=== PATIENT | female | born 2000 | race Caucasian/White ===

== ENCOUNTER 2019-08-10 14:05 | Observation (INO) | payer MEDICAID ==
[2019-08-10] MEDS ORDERED: IV RINGERS,LACTATED 1000ML 1,000 ML IV PRN (14:30)
[2019-08-10 15:15] LABS: BILIRUBIN,URINE NEGATIVE (NEG); CLARITY,URINE CLEAR; COLOR,URINE YELLOW; NITRITE,URINE NEGATIVE (NEG); PROTEIN,URINE NEGATIVE (NEG-TRACE)
[2019-08-10 15:29] LABS: BACTERIA,URINE 0 /HPF (0-FEW); RBC,URINE 0 /HPF (0-2); SQUAMOUS EPITHELIAL CELL,UR MANY /LPF; WBC,URINE 0 /HPF (0-4)
[2019-08-10 15:57] LABS: AMNIO PT NEGATIVE
[2019-08-10] MEDS ORDERED: PREN-54 PO (17:35)
[2019-08-10] MEDS ORDERED: ESCITALOPRAM OXA5 M1 PO (17:35)
[2019-08-10] MEDS ORDERED: ONDA8TAB15 PO (17:35)
== END 2019-08-10 17:30 | disposition home or self-care (01) ==
LOC: 3 SO LND 14:05
PROVIDERS: ADMIT Obstetrics & Gynecology; ATTEND Obstetrics & Gynecology
DX: O26.893 Other specified pregnancy related conditions, third trimester (principal); O60.14X0 Preterm labor third trimester with preterm delivery third trimester, not applicable or unspecified; Z3A.39 39 weeks gestation of pregnancy
CPT/HCPCS: 36415; 81001; 84112; G0378; G0379

== ENCOUNTER → 2020-01-26 | Outpatient (CLI) | payer MEDICAID ==
[2019-08-15 18:45] VITALS: BP 115/75
[~2020-01-26] MED LIST: CITA20TA9 PO; DOCU-109 PO; ESCITALOPRAM OXA5 M1 PO; IBUP-1027 PO; ONDA8TAB15 PO; OXYC1TAB15 PO; PREN-54 PO
[2020-01-26 11:27] LABS: BASO # 0.1 x10^3/uL (0.0-0.2); BASO % 1 % (0-3); EOS # 0.1 x10^3/uL (0.0-0.7); EOS % 1 % (0-3); HEMATOCRIT 36.7 % (36.0-47.0); HEMOGLOBIN 11.9 g/dL (12.0-15.5); LYMPH # 2.2 x10^3/uL (1.0-4.8); LYMPH % 22 % (24-48); MEAN CORPUSCULAR HEMOGLOBIN 22 pg (25-35); MEAN CORPUSCULAR HGB CONC 33 g/dL (31-37); MEAN CORPUSCULAR VOLUME 68 fL (79-100); MONO # 0.7 x10^3/uL (0.0-1.1); MONO % 7 % (0-9); NEUT % 69 % (31-73); PLATELET COUNT 279 x10^3/uL (140-400); RED BLOOD COUNT 5.37 x10^6/uL (3.50-5.40); RED CELL DISTRIBUTION WIDTH 15.9 % (11.5-14.5); WHITE BLOOD COUNT 10.1 x10^3/uL (4.0-11.0)
[2020-01-26 12:13] LABS: PLT ESTIMATE ADEQUATE (ADEQUATE)
[2020-01-26 12:15] LABS: ANISOCYTOSIS SLIGHT; HYPOCHROMIA PRESENT; MICROCYTOSIS MARKED; POLYCHROMASIA SLIGHT
[2020-01-26 12:16] LABS: OVALOCYTES MOD; TARGET CELLS FEW; TEAR DROP CELLS FEW
== END | disposition home or self-care (01) ==
LOC: LAB 10:48
PROVIDERS: ATTEND Obstetrics & Gynecology
DX: Z32.01 Encounter for pregnancy test, result positive (principal)
CPT/HCPCS: 36415; 85025; 86592; 86703; 86762; 86850; 86900; 86901; 87340

== ENCOUNTER 2020-06-19 08:45 | Emergency (ER) | payer MEDICAID ==
[~2020-06-19] VITALS: Ht 162.6 cm; Wt 95.0 kg
[2020-06-19] MEDS ORDERED: IV NORMAL SALINE 1000ML BAG 1,000 ML IV SCH (08:53)
--- NOTE | 2020-06-19 08:56 | PHYS DOC ---
Past Medical History Past Medical History , 27 WEEKS Drug Use: Marijuana General Adult EDM: Chief Complaint: Epigastric pain HPI: HPI: Patient is a 19 year old female who presents with 2-day history of epigastric pain radiating to her back. Patient is 27 weeks patient describes nausea vomiting and intermittent pain that is severe in intensity currently patient feels very anxious and has shortness of breath associated with the pain. Pain is worse with eating. Patient did smoke some marijuana today to try to alleviate the symptoms without much improvement. Patient denies any vaginal bleeding. Review of Systems: Review of Systems: Constitutional: Denies fever or chills. [] Eyes: Denies change in visual acuity. [] HENT: Denies nasal congestion or sore throat. [] Respiratory: Denies cough has shortness of breath associated with pain Cardiovascular: Denies chest pain or edema. [] GI: Complains of abdominal pain nausea and vomiting but no diarrhea : Denies dysuria. [] Denies vaginal bleeding Musculoskeletal: Complains of back pain Integument: Denies rash. [] Neurologic: Denies headache, focal weakness or sensory changes. [] Endocrine: Denies polyuria or polydipsia. [] Lymphatic: Denies swollen glands. [] Psychiatric: Denies depression or anxiety. [] Heart Score: HEART Score for Chest Pain: HEART Score for Chest Pain Response (Comments) Value History Slighlty/Non-Suspicious 0 ECG Nonspecific Repolarizatio 1 Age < 45 0 Risk Factors No Risk Factors 0 Total 1 Risk Factors: Risk Factors: DM, Current or recent (<one month) smoker, HTN, HLP, family history of CAD, obesity. Risk Scores: Score 0 - 3: 2.5% MACE over next 6 weeks - Discharge Home Score 4 - 6: 20.3% MACE over next 6 weeks - Admit for Clinical Observation Score 7 - 10: 72.7% MACE over next 6 weeks - Early Invasive Strategies Allergies: Allergies: Allergies Coded Allergies Type Severity Reaction Last Updated Verified No Known Drug Allergies 08/10/19 No Physical Exam: PE: Constitutional: Well developed, well nourished, moderate distress, non-toxic appearance. [] HENT: Normocephalic, atraumatic, bilateral external ears normal, no trismus nose normal. [] Eyes: PERRLA, EOMI, conjunctiva normal, no discharge. [] Neck: Normal range of motion, no tenderness, supple, no stridor. [] Cardiovascular:Heart rate regular rhythm, cap refill brisk peripheral pulses intact. Lungs & Thorax: Bilateral breath sounds clear, no respiratory distress Abdomen: Gravid uterus with tenderness to palpate in the right upper quadrant epigastric area, no guarding or rebound no pulsatile masses Skin: Warm, dry, no erythema, no rash. [] Back: No tenderness, no CVA tenderness. [] Extremities: No tenderness, no cyanosis, no clubbing, ROM intact, no edema. [] Neurologic: Alert and oriented X 3, normal motor function, normal sensory function, no focal deficits noted. [] Psychologic: Extremely anxious and tearful Current Patient Data: Labs: Laboratory Tests Test 06/19/20 09:03 White Blood Count 14.5 x10^3/uL Red Blood Count 4.99 x10^6/uL Hemoglobin 10.9 g/dL Hematocrit 34.7 % Mean Corpuscular Volume 70 fL Mean Corpuscular Hemoglobin 22 pg Mean Corpuscular Hemoglobin Concent 32 g/dL Red Cell Distribution Width 15.3 % Platelet Count 277 x10^3/uL Neutrophils (%) (Auto) 85 % Lymphocytes (%) (Auto) 11 % Monocytes (%) (Auto) 4 % Eosinophils (%) (Auto) 0 % Basophils (%) (Auto) 0 % Neutrophils # (Auto) 12.2 x10^3/uL Lymphocytes # (Auto) 1.6 x10^3/uL Monocytes # (Auto) 0.6 x10^3/uL Eosinophils # (Auto) 0.0 x10^3/uL Basophils # (Auto) 0.0 x10^3/uL Platelet Estimate Adequate Hypochromasia Present Microcytosis Present Sodium Level 137 mmol/L Potassium Level 3.4 mmol/L Chloride Level 102 mmol/L Carbon Dioxide Level 21 mmol/L Anion Gap 14 Blood Urea Nitrogen 15 mg/dL Creatinine 0.7 mg/dL Estimated GFR (Cockcroft-Gault) 106.7 BUN/Creatinine Ratio 21 Glucose Level 115 mg/dL Calcium Level 8.6 mg/dL Total Bilirubin 0.3 mg/dL Aspartate Amino Transf (AST/SGOT) 11 U/L Alanine Aminotransferase (ALT/SGPT) 13 U/L Alkaline Phosphatase 89 U/L Total Protein 7.3 g/dL Albumin 3.2 g/dL Albumin/Globulin Ratio 0.8 Lipase 58 U/L Current Medications Medications (Trade) Dose Ordered Sig/Venu Route PRN Reason Start Time Stop Time Status Last Admin Dose Admin Sodium Chloride 1,000 ml @ 1,000 mls/hr Q1H IV 06/19/20 08:53 06/19/20 09:47 DC Ondansetron HCl (Zofran) 4 mg 1X ONCE IVP 06/19/20 09:00 06/19/20 09:01 DC Vital Signs: Vital Signs Date Time Temp Pulse Resp B/P (MAP) Pulse Ox O2 Delivery O2 Flow Rate FiO2 06/19/20 09:00 97.8 97 26 132/97 (109) 98 Room Air 97.8 Vital Signs Date Time Temp Pulse Resp B/P (MAP) Pulse Ox O2 Delivery O2 Flow Rate FiO2 06/19/20 09:00 97.8 97 26 132/97 (109) 98 Room Air 97.8 EKG: EKG: [] EKG interpreted by me normal sinus rhythm with a rate of 99 normal axis normal intervals nonspecific ST changes Radiology/Procedures: Radiology/Procedures: [] Course & Med Decision Making: Course & Med Decision Making Pertinent Labs and Imaging studies reviewed. (See chart for details) [] Upon initial assessment is determined that the patient is having epigastric pain and is over 20 weeks I ordered initial work-up for gallbladder and think the patient is best served up in the labor and delivery unit to rule out active labor.. Dragon Disclaimer: Dragon Disclaimer: This electronic medical record was generated, in whole or in part, using a voice recognition dictation system. Departure Departure Impression: Primary Impression: Epigastric pain Additional Impression: Disposition: 05 TRANSFER OTHER (L&d) Condition: STABLE Referrals: NO PCP (PCP) Justicifation of Admission Dx: Justifications for Admission: Justification of Admission Dx: N/A ELEANOR PUENTES MD Jun 19, 2020 08:56
[2020-06-19 09:00] VITALS: BP 132/97
[2020-06-19] MEDS ORDERED: ONDANSETRON PF 4 MG/2 ML VIAL. IVP ONE (09:00)
[2020-06-19 09:15] LABS: BASO % 0 % (0-3); EOS % 0 % (0-3); HEMATOCRIT 34.7 % (36.0-47.0); HEMOGLOBIN 10.9 g/dL (12.0-15.5); LYMPH # 1.6 x10^3/uL (1.0-4.8); LYMPH % 11 % (24-48); MEAN CORPUSCULAR HEMOGLOBIN 22 pg (25-35); MEAN CORPUSCULAR HGB CONC 32 g/dL (31-37); MEAN CORPUSCULAR VOLUME 70 fL (79-100); MONO # 0.6 x10^3/uL (0.0-1.1); MONO % 4 % (0-9); NEUT # 12.2 x10^3/uL (1.8-7.7); NEUT % 85 % (31-73); PLATELET COUNT 277 x10^3/uL (140-400); RED BLOOD COUNT 4.99 x10^6/uL (3.50-5.40); RED CELL DISTRIBUTION WIDTH 15.3 % (11.5-14.5); WHITE BLOOD COUNT 14.5 x10^3/uL (4.0-11.0)
[2020-06-19 09:23] LABS: CALCIUM 8.6 mg/dL (8.5-10.1); CREATININE 0.7 mg/dL (0.6-1.0); GFR 106.7; POTASSIUM 3.4 mmol/L (3.5-5.1)
[2020-06-19 09:29] LABS: ALBUMIN 3.2 g/dL (3.4-5.0); ALBUMIN/GLOBULIN RATIO 0.8 (1.0-1.7); TOTAL BILIRUBIN 0.3 mg/dL (0.2-1.0); TOTAL PROTEIN 7.3 g/dL (6.4-8.2)
[2020-06-19 10:39] LABS: HYPOCHROMIA PRESENT; MICROCYTOSIS PRESENT; PLT ESTIMATE ADEQUATE (ADEQUATE)
--- NOTE | 2020-06-19 11:29 | RAD ---
Right upper quadrant ultrasound dated 06/19/2020. No comparison available. Clinical data indication: Right upper quadrant pain. FINDINGS: Liver is homogeneous in echogenicity. No focal hepatic mass. Intrahepatic and extrahepatic biliary tree normal in caliber. The common bile duct measures 5 mm. Gallbladder normal in size and echogenicity. No gallbladder wall thickening or pericholecystic fluid. No gallstones are seen. Right kidney measures 10.3 cm in length. No hydronephrosis. Left kidney was not imaged. Limited visualized portions of pancreas aorta and IVC unremarkable. No significant ascites. IMPRESSION: No acute sonographic abnormality. Electronically signed by: Bobo Thompson MD (06/19/2020 11:25 AM) [id number]
== END 2020-06-19 09:15 | disposition home or self-care (01) ==
LOC: ER 08:45
DX: O21.9 Vomiting of pregnancy, unspecified (principal); R10.13 Epigastric pain; R06.02 Shortness of breath; F12.90 Cannabis use, unspecified, uncomplicated; Z3A.27 27 weeks gestation of pregnancy
CPT/HCPCS: 36415; 76705; 80053; 83690; 85025; 99284

== ENCOUNTER 2020-06-19 09:11 | Observation (INO) | payer MEDICAID ==
[2019-08-15 18:45] VITALS: BP 115/75
[2020-06-19] MEDS ORDERED: IV RINGERS,LACTATED 1000ML 1,000 ML IV SCH (09:40)
[2020-06-19] MEDS ORDERED: MORPHINE SULFATE 10 MG/ML VIAL. ONE (09:42)
[2020-06-19] MEDS ORDERED: ONDANSETRON PF 4 MG/2 ML VIAL. IVP PRN (09:45)
[2020-06-19] MEDS ORDERED: MORPHINE SULFATE 10 MG/ML VIAL. IV ONE (09:45)
[2020-06-19] MEDS ORDERED: PANTOPRAZOLE IV PUSH 40 MG VIAL. IVP ONE (09:45)
[2020-06-19 11:22] LABS: ALBUMIN 3.2 g/dL (3.4-5.0); ALBUMIN/GLOBULIN RATIO 0.8 (1.0-1.7); CALCIUM 8.4 mg/dL (8.5-10.1); CREATININE 0.7 mg/dL (0.6-1.0); GFR 106.7; POTASSIUM 3.5 mmol/L (3.5-5.1); TOTAL BILIRUBIN 0.3 mg/dL (0.2-1.0); TOTAL PROTEIN 7.3 g/dL (6.4-8.2)
== END 2020-06-19 14:21 | disposition home or self-care (01) ==
LOC: 3 SO LND 09:11
PROVIDERS: ADMIT Obstetrics & Gynecology; ATTEND Obstetrics & Gynecology
DX: O26.892 Other specified pregnancy related conditions, second trimester (principal); O99.322 Drug use complicating pregnancy, second trimester; R10.13 Epigastric pain; F12.10 Cannabis abuse, uncomplicated; R11.2 Nausea with vomiting, unspecified; Z3A.27 27 weeks gestation of pregnancy
CPT/HCPCS: 36415; 80053; 82150; 83690; 96361; 96374; 96375; 99284; C9113; G0378; J2270; J2405; J7120; G0379

== ENCOUNTER 2020-07-07 19:13 | Observation (INO) | payer MEDICAID ==
[2019-08-15 18:45] VITALS: BP 115/75
[2020-07-07 19:40] LABS: BILIRUBIN,URINE NEGATIVE (NEG); CLARITY,URINE TURBID; COLOR,URINE YELLOW; NITRITE,URINE NEGATIVE (NEG); PH,URINE 7.5 (<5.0-8.0); PROTEIN,URINE NEGATIVE (NEG-TRACE)
[2020-07-07] MEDS ORDERED: ONDANSETRON PF 4 MG/2 ML VIAL. IVP PRN ×2 (19:45→22:30)
[2020-07-07 19:48] LABS: BARBITURATES NEG (NEG); BENZODIAZEPINES NEG (NEG); CANNABINOIDS POS (NEG); COCAINE NEG (NEG); METHADONE NEG (NEG); OPIATES NEG (NEG); PHENCYCLIDINE NEG (NEG)
[2020-07-07 19:49] LABS: AMPHETAMINE/METHAMPHETAMINE NEG (NEG)
[2020-07-07] MEDS: IV RINGERS,LACTATED 1000ML 1,000 ML IV SCH ×2 (19:51→20:42)
[2020-07-07 19:59] LABS: BASO # 0.1 x10^3/uL (0.0-0.2); BASO % 1 % (0-3); EOS # 0.1 x10^3/uL (0.0-0.7); EOS % 1 % (0-3); HEMATOCRIT 31.7 % (36.0-47.0); HEMOGLOBIN 10.3 g/dL (12.0-15.5); LYMPH # 2.2 x10^3/uL (1.0-4.8); LYMPH % 17 % (24-48); MEAN CORPUSCULAR HEMOGLOBIN 23 pg (25-35); MEAN CORPUSCULAR HGB CONC 33 g/dL (31-37); MEAN CORPUSCULAR VOLUME 70 fL (79-100); MONO # 0.6 x10^3/uL (0.0-1.1); MONO % 5 % (0-9); NEUT # 10.5 x10^3/uL (1.8-7.7); NEUT % 78 % (31-73); PLATELET COUNT 238 x10^3/uL (140-400); RED BLOOD COUNT 4.54 x10^6/uL (3.50-5.40); RED CELL DISTRIBUTION WIDTH 15.4 % (11.5-14.5); WHITE BLOOD COUNT 13.5 x10^3/uL (4.0-11.0)
[2020-07-07 20:00] LABS: SQUAMOUS EPITHELIAL CELL,UR FEW /LPF
[2020-07-07 20:02] LABS: AMORPHOUS SEDIMENT,UR PRESENT /HPF; BACTERIA,URINE FEW /HPF (0-FEW); RBC,URINE 0 /HPF (0-2); WBC,URINE OCC /HPF (0-4)
[2020-07-07] MEDS ORDERED: MORPHINE SULFATE 2 MG/ML VIAL. IV ONE (20:15)
[2020-07-07] MEDS ORDERED: BUTORPHANOL 2 MG/ML VIAL. ONE (20:33)
[2020-07-07] MEDS ORDERED: BUTORPHANOL 2 MG/ML VIAL. IV PRN (20:45)
[2020-07-07 20:51] LABS: ANISOCYTOSIS SLIGHT; HYPOCHROMIA MOD; MICROCYTOSIS MOD; OVALOCYTES PRESENT; PLT ESTIMATE ADEQUATE (ADEQUATE); POIKILOCYTOSIS PRESENT
[2020-07-07 20:52] LABS: TEAR DROP CELLS OCC
[2020-07-07] MEDS ORDERED: ACETAMINOPHEN 500 MG TABLET PO PRN (22:30)
[2020-07-07] MEDS ORDERED: diphenhydrAMINE HCL 25 MG CAPSULE PO ONE (23:00)
== END 2020-07-07 22:45 | disposition home or self-care (01) ==
LOC: 3 SO LND 19:13
PROVIDERS: ADMIT Obstetrics & Gynecology; ATTEND Obstetrics & Gynecology
DX: O21.2 Late vomiting of pregnancy (principal); O99.89 Other specified diseases and conditions complicating pregnancy, childbirth and the puerperium; M54.9 Dorsalgia, unspecified; Z3A.29 29 weeks gestation of pregnancy; Z79.899 Other long term (current) drug therapy
CPT/HCPCS: 36415; 80307; 81001; 85025; 87086; 96361; 96374; 96375; G0378; G0379; J0595; J2405; J7120

== ENCOUNTER 2020-07-14 12:19 | Observation (INO) | payer MEDICAID ==
[2019-08-15 18:45] VITALS: BP 115/75
[2020-07-14] MEDS ORDERED: ACETAMINOPHEN 325 MG TABLET. PO PRN (12:30)
[2020-07-14] MEDS ORDERED: ONDANSETRON PF 4 MG/2 ML VIAL. IVP PRN (12:30)
[2020-07-14 12:55] LABS: BILIRUBIN,URINE NEGATIVE (NEG); CLARITY,URINE CLEAR; COLOR,URINE AMBER; NITRITE,URINE NEGATIVE (NEG); PROTEIN,URINE NEGATIVE (NEG-TRACE)
[2020-07-14 13:04] LABS: SQUAMOUS EPITHELIAL CELL,UR MOD /LPF
[2020-07-14 13:05] LABS: AMORPHOUS SEDIMENT,UR PRESENT /HPF; BACTERIA,URINE 0 /HPF (0-FEW); RBC,URINE 0 /HPF (0-2); WBC,URINE OCC /HPF (0-4)
[2020-07-14] MEDS ORDERED: ONDANSETRON PF 4 MG/2 ML VIAL. IM ONE (13:30)
[2020-07-14] MEDS: IV RINGERS,LACTATED 1000ML 1,000 ML IV SCH ×2 (13:44→15:26)
[2020-07-14] MEDS ORDERED: ONDANSETRON PF 4 MG/2 ML VIAL. IVP ONE (14:00)
[2020-07-14] MEDS ORDERED: MORPHINE SULFATE 2 MG/ML VIAL. IM ONE (15:15)
--- NOTE | 2020-07-14 15:27 | RAD ---
RENAL COMPLETE BILATERAL History: Reason: L flank pain, back pain / Spl. Instructions: / History: Comparison: None. Procedure: Transabdominal ultrasound images are obtained of the kidneys and bladder. Findings: Right kidney: measures 12.3 x 5.9 x 4.2 cm. Normal cortical echotexture. Corticomedullary differentiation is preserved. No hydronephrosis. Left kidney: measures 12.5 x 4.6 x 4.9 cm. Normal cortical echotexture. Corticomedullary differentiation is preserved. No hydronephrosis. Urinary bladder: Decompressed urinary bladder. IVC not well seen due to technique. IMPRESSION: 1. Unremarkable renal ultrasound. Electronically signed by: Conrado Mosley DO (07/14/2020 3:24 PM) [id number]
[2020-07-14] MEDS ORDERED: MORPHINE SULFATE 4 MG/ML VIAL. IV ONE (15:30)
--- NOTE | 2020-07-14 15:32 | RAD ---
OB LIMITED History: Reason: L flank pain, back pain / Spl. Instructions: / History: Comparison: None. Technique: Multiple grayscale images, color Doppler, and M-mode images of the uterus are obtained. Findings: The amount of amniotic fluid appears appropriate. Amniotic fluid index is 14 cm. Cephalic positioning. Biometrical data: BPD = 7.92 cm for 31 weeks 6 days. HC = 28.36 cm for 31 weeks 1 days. AC = 25.9 cm for 30 weeks 0 days. FL = 5.99 cm for 31 weeks 1 days. HC/AC ratio = 1.1. Overall, the estimated sonographic gestational age is 31 weeks and 0 days for an estimated date of delivery of September 15, 2020. Estimated weight is 1609 grams. heart rate 160 bpm. Three-vessel cord identified. Fluid is identified within the bladder. Stomach is visualized. brain is visualized. There is movement. Remainder of the structures were not evaluated on the current examination. Recommend comparison with prior survey examinations.. Impression: 1. Single intrauterine gestation with estimated gestational age 31 weeks 0 days. heart rate 160 bpm. Electronically signed by: Conrado Mosley DO (07/14/2020 3:29 PM) [id number]
== END 2020-07-14 17:04 | disposition home or self-care (01) ==
LOC: 3 SO LND 12:19
PROVIDERS: ADMIT Obstetrics & Gynecology; ATTEND Obstetrics & Gynecology
DX: O21.2 Late vomiting of pregnancy (principal); O99.89 Other specified diseases and conditions complicating pregnancy, childbirth and the puerperium; M54.9 Dorsalgia, unspecified; Z3A.30 30 weeks gestation of pregnancy
CPT/HCPCS: 76770; 76815; 81001; 96361; 96374; 96375; G0378; G0379; J2270; J2405; J7120

== ENCOUNTER 2020-07-17 10:35 | Inpatient (IN) | payer MEDICAID ==
[~2020-07-17] VITALS: Ht 160 cm; Wt 91.4 kg
[2020-07-17 10:44] VITALS: BP 135/79
[2020-07-17 11:12] LABS: BILIRUBIN,URINE NEGATIVE (NEG); CLARITY,URINE CLEAR; NITRITE,URINE NEGATIVE (NEG); PROTEIN,URINE 30 mg/dL (NEG-TRACE)
[2020-07-17 11:15] LABS: COLOR,URINE YELLOW
[2020-07-17 11:21] LABS: RBC,URINE OCC /HPF (0-2); SQUAMOUS EPITHELIAL CELL,UR MOD /LPF; WBC,URINE OCC /HPF (0-4)
[2020-07-17 11:22] LABS: BACTERIA,URINE FEW /HPF (0-FEW)
[2020-07-17] MEDS: ONDANSETRON PF 4 MG/2 ML VIAL. IVP PRN ×2 (11:40→21:02)
[2020-07-17] MEDS: IV RINGERS,LACTATED 1000ML 1,000 ML IV PRN (11:43)
[2020-07-17] MEDS ORDERED: MORPHINE SULFATE 4 MG/ML VIAL. IM ONE (12:00)
[2020-07-17] MEDS ORDERED: 0.9 % SODIUM CHLORIDE 10 ML DISP.SYRIN. IV PRN (12:00)
[2020-07-17] MEDS: IV DEXTROSE 5%-LACT RINGERS 1,000 ML IV SCH ×2 (12:25→20:01)
[2020-07-17] MEDS ORDERED: MORPHINE SULFATE 4 MG/ML VIAL. IV ONE (12:30)
[2020-07-17] MEDS: cefTRIAXone IV Push 1 GM VIAL. IVP SCH (13:01)
[2020-07-17 13:30] LABS: BASO % 0 % (0-3); EOS % 0 % (0-3); HEMATOCRIT 31.3 % (36.0-47.0); LYMPH # 1.6 x10^3/uL (1.0-4.8); LYMPH % 14 % (24-48); MEAN CORPUSCULAR HEMOGLOBIN 23 pg (25-35); MEAN CORPUSCULAR HGB CONC 32 g/dL (31-37); MEAN CORPUSCULAR VOLUME 71 fL (79-100); MONO # 0.5 x10^3/uL (0.0-1.1); MONO % 5 % (0-9); NEUT # 9.4 x10^3/uL (1.8-7.7); NEUT % 81 % (31-73); PLATELET COUNT 225 x10^3/uL (140-400); RED BLOOD COUNT 4.44 x10^6/uL (3.50-5.40); RED CELL DISTRIBUTION WIDTH 15.2 % (11.5-14.5); WHITE BLOOD COUNT 11.7 x10^3/uL (4.0-11.0)
[2020-07-17 13:48] LABS: ALBUMIN 2.7 g/dL (3.4-5.0); ALBUMIN/GLOBULIN RATIO 0.9 (1.0-1.7); CALCIUM 8.6 mg/dL (8.5-10.1); CREATININE 0.4 mg/dL (0.6-1.0); GFR 203.5; POTASSIUM 3.6 mmol/L (3.5-5.1); TOTAL BILIRUBIN 0.2 mg/dL (0.2-1.0); TOTAL PROTEIN 5.7 g/dL (6.4-8.2)
--- NOTE | 2020-07-17 13:54 | PDOC1 ---
OB - History Hx of Present Care: Good Care Ultrasounds: Normal mid trimester US Obstetrical Complications: Hyperemesis Medical Complications: Other (Pyelonephritis) Past Family/Social History * Past Medical, Surgical, Family and Obstetric Histories reviewed from chart. Rubella: Immune RPR/VDRL: Negative GBS Status: Unknown HBsAG: Negative OB - Chief Complaint & HPI Date of Admission: Date of Admission: Jul 17, 2020 at 10:35 Chief Complaint/History : 2 Para: 1 EGA: 30 Reason for admission: other (Hyperemesis and Pyelonephritis Left side) Admission Nurse Assessment Rev: Yes OB - Admission Exam Physical Exam Vitals: VS - Last 72 Hours, by Label Date Time Temp Pulse Resp B/P (MAP) Pulse Ox O2 Delivery O2 Flow Rate FiO2 07/17/20 12:26 16 Room Air 07/17/20 10:44 98.0 89 40 135/79 (97) Room Air 98.0 HEENT: Other (mucous membranes dry) Heart: Other (tachycardia) Lungs: Clear Abdomen: Gravid, Soft, Tender (Left CVA tenderness) Extremities: Edema Reflexes: Normal Cervical Dilatation: None Effacement: 0% Station: Ballotable Membranes: Intact Amniotic Fluid: Thin Meconium Heart Rate: Normal Accelerations: Accelerations Present Decelerations: No decelerations Contractions on Admission: None Text A: 30 wks IUP Hyperemesis Gravidarum Pyelonephritis, Left P: Admit for IV hydration and IV abx. Zofran and Reglan for nausea. JOVANY ADAMS Jr, MD Jul 17, 2020 13:54
[2020-07-17] MEDS ORDERED: BENZOCAINE 20% TOPICAL AEROSOL SPRAY 57GM CAN. TP PRN (14:00)
[2020-07-17 14:52] LABS: HYPOCHROMIA SLIGHT; PLT ESTIMATE ADEQUATE (ADEQUATE); POLYCHROMASIA SLIGHT
[2020-07-17 14:53] LABS: MICROCYTOSIS MARKED; SCHISTOCYTES OCC
[2020-07-17] MEDS: ACETAMINOPHEN 500 MG TABLET PO PRN ×2 (16:14→21:01)
[2020-07-17 16:16] VITALS: BP 113/58
--- NOTE | 2020-07-17 16:45 | NUR ---
Pt. transfers to room 343, no change in pt. condition. PT. continues to complain of pain states a 5 out of 10. Pt states some nausea but not as severe as before. RN transfers with pt. to continue pt. care.
[2020-07-17] MEDS ORDERED: SERT50TA PO (17:16)
[2020-07-17] MEDS ORDERED: diphenhydrAMINE 50 MG/ML VIAL IVP PRN (17:30)
[2020-07-17] MEDS ORDERED: PROMETHAZINE 25 MG SUPP.RECT. PR PRN (17:30)
[2020-07-17] MEDS: METOCLOPRAMIDE HCL 10 MG/2 ML VIAL. IVP PRN (18:22)
[2020-07-17 20:10] VITALS: BP 119/75
[2020-07-17] MEDS ORDERED: SERTRALINE 50 MG TABLET. PO SCH (21:00)
[2020-07-18] MEDS: ACETAMINOPHEN 500 MG TABLET PO PRN ×3 (02:52→15:43)
[2020-07-18] MEDS: IV DEXTROSE 5%-LACT RINGERS 1,000 ML IV SCH (02:52)
[2020-07-18 06:10] VITALS: BP 111/67
[2020-07-18] MEDS ORDERED: ASPIRIN ENTERIC COATED 81 MG TABLET.DR. PO SCH (08:00)
[2020-07-18] MEDS: METOCLOPRAMIDE HCL 10 MG/2 ML VIAL. IVP PRN (08:36)
[2020-07-18] MEDS: IV RINGERS,LACTATED 1000ML 1,000 ML IV PRN (08:37)
[2020-07-18] MEDS ORDERED: PRENATAL MULTIVITAMIN TABLET. PO SCH (09:00)
[2020-07-18 09:35] LABS: ALBUMIN 2.4 g/dL (3.4-5.0); ALBUMIN/GLOBULIN RATIO 0.9 (1.0-1.7); CALCIUM 8.2 mg/dL (8.5-10.1); CREATININE 0.5 mg/dL (0.6-1.0); GFR 157.3; POTASSIUM 3.5 mmol/L (3.5-5.1); TOTAL BILIRUBIN 0.2 mg/dL (0.2-1.0); TOTAL PROTEIN 5.2 g/dL (6.4-8.2)
--- NOTE | 2020-07-18 10:32 | PDOC ---
OB Progress Note Date of Service 07/18/20 Time of Evaluation 1030 Notes Pt. feeling better. She is tolerating clear liquids. Will advance to full liquid diet. Pain improved and mostly gone. Lab Laboratory Tests Test 07/17/20 10:45 07/17/20 12:35 07/18/20 07:45 Urine Collection Type Unknown Urine Color Yellow Urine Clarity Clear Urine pH 6.0 (<5.0-8.0) Urine Specific Jasper >=1.030 (1.000-1.030) Urine Protein 30 mg/dL (NEG-TRACE) Urine Glucose (UA) Negative mg/dL (NEG) Urine Ketones (Stick) 15 mg/dL (NEG) Urine Blood Negative (NEG) Urine Nitrite Negative (NEG) Urine Bilirubin Negative (NEG) Urine Urobilinogen Dipstick 1.0 mg/dL (0.2 mg/dL) Urine Leukocyte Esterase Negative (NEG) Urine RBC Occ /HPF (0-2) Urine WBC Occ /HPF (0-4) Urine Squamous Epithelial Cells Mod /LPF Urine Bacteria Few /HPF (0-FEW) Urine Mucus Marked /LPF White Blood Count 11.7 x10^3/uL (4.0-11.0) Red Blood Count 4.44 x10^6/uL (3.50-5.40) Hemoglobin 10.0 g/dL (12.0-15.5) Hematocrit 31.3 % (36.0-47.0) Mean Corpuscular Volume 71 fL (79-100) Mean Corpuscular Hemoglobin 23 pg (25-35) Mean Corpuscular Hemoglobin Concent 32 g/dL (31-37) Red Cell Distribution Width 15.2 % (11.5-14.5) Platelet Count 225 x10^3/uL (140-400) Neutrophils (%) (Auto) 81 % (31-73) Lymphocytes (%) (Auto) 14 % (24-48) Monocytes (%) (Auto) 5 % (0-9) Eosinophils (%) (Auto) 0 % (0-3) Basophils (%) (Auto) 0 % (0-3) Neutrophils # (Auto) 9.4 x10^3/uL (1.8-7.7) Lymphocytes # (Auto) 1.6 x10^3/uL (1.0-4.8) Monocytes # (Auto) 0.5 x10^3/uL (0.0-1.1) Eosinophils # (Auto) 0.0 x10^3/uL (0.0-0.7) Basophils # (Auto) 0.0 x10^3/uL (0.0-0.2) Platelet Estimate Adequate (ADEQUATE) Polychromasia Slight Hypochromasia Slight Microcytosis Marked Schistocytes Occ Sodium Level 139 mmol/L (136-145) 140 mmol/L (136-145) Potassium Level 3.6 mmol/L (3.5-5.1) 3.5 mmol/L (3.5-5.1) Chloride Level 104 mmol/L (98-107) 106 mmol/L (98-107) Carbon Dioxide Level 22 mmol/L (21-32) 23 mmol/L (21-32) Anion Gap 13 (6-14) 11 (6-14) Blood Urea Nitrogen 7 mg/dL (7-20) 6 mg/dL (7-20) Creatinine 0.4 mg/dL (0.6-1.0) 0.5 mg/dL (0.6-1.0) Estimated GFR (Cockcroft-Gault) 203.5 157.3 BUN/Creatinine Ratio 18 (6-20) 12 (6-20) Glucose Level 90 mg/dL (70-99) 88 mg/dL (70-99) Calcium Level 8.6 mg/dL (8.5-10.1) 8.2 mg/dL (8.5-10.1) Total Bilirubin 0.2 mg/dL (0.2-1.0) 0.2 mg/dL (0.2-1.0) Aspartate Amino Transf (AST/SGOT) 14 U/L (15-37) 11 U/L (15-37) Alanine Aminotransferase (ALT/SGPT) 14 U/L (14-59) 14 U/L (14-59) Alkaline Phosphatase 87 U/L (46-116) 73 U/L (46-116) Total Protein 5.7 g/dL (6.4-8.2) 5.2 g/dL (6.4-8.2) Albumin 2.7 g/dL (3.4-5.0) 2.4 g/dL (3.4-5.0) Albumin/Globulin Ratio 0.9 (1.0-1.7) 0.9 (1.0-1.7) Laboratory Tests Test 07/17/20 10:45 07/17/20 12:35 07/18/20 07:45 Urine Collection Type Unknown Urine Color Yellow Urine Clarity Clear Urine pH 6.0 (<5.0-8.0) Urine Specific Jasper >=1.030 (1.000-1.030) Urine Protein 30 mg/dL (NEG-TRACE) Urine Glucose (UA) Negative mg/dL (NEG) Urine Ketones (Stick) 15 mg/dL (NEG) Urine Blood Negative (NEG) Urine Nitrite Negative (NEG) Urine Bilirubin Negative (NEG) Urine Urobilinogen Dipstick 1.0 mg/dL (0.2 mg/dL) Urine Leukocyte Esterase Negative (NEG) Urine RBC Occ /HPF (0-2) Urine WBC Occ /HPF (0-4) Urine Squamous Epithelial Cells Mod /LPF Urine Bacteria Few /HPF (0-FEW) Urine Mucus Marked /LPF White Blood Count 11.7 x10^3/uL (4.0-11.0) Red Blood Count 4.44 x10^6/uL (3.50-5.40) Hemoglobin 10.0 g/dL (12.0-15.5) Hematocrit 31.3 % (36.0-47.0) Mean Corpuscular Volume 71 fL (79-100) Mean Corpuscular Hemoglobin 23 pg (25-35) Mean Corpuscular Hemoglobin Concent 32 g/dL (31-37) Red Cell Distribution Width 15.2 % (11.5-14.5) Platelet Count 225 x10^3/uL (140-400) Neutrophils (%) (Auto) 81 % (31-73) Lymphocytes (%) (Auto) 14 % (24-48) Monocytes (%) (Auto) 5 % (0-9) Eosinophils (%) (Auto) 0 % (0-3) Basophils (%) (Auto) 0 % (0-3) Neutrophils # (Auto) 9.4 x10^3/uL (1.8-7.7) Lymphocytes # (Auto) 1.6 x10^3/uL (1.0-4.8) Monocytes # (Auto) 0.5 x10^3/uL (0.0-1.1) Eosinophils # (Auto) 0.0 x10^3/uL (0.0-0.7) Basophils # (Auto) 0.0 x10^3/uL (0.0-0.2) Platelet Estimate Adequate (ADEQUATE) Polychromasia Slight Hypochromasia Slight Microcytosis Marked Schistocytes Occ Sodium Level 139 mmol/L (136-145) 140 mmol/L (136-145) Potassium Level 3.6 mmol/L (3.5-5.1) 3.5 mmol/L (3.5-5.1) Chloride Level 104 mmol/L (98-107) 106 mmol/L (98-107) Carbon Dioxide Level 22 mmol/L (21-32) 23 mmol/L (21-32) Anion Gap 13 (6-14) 11 (6-14) Blood Urea Nitrogen 7 mg/dL (7-20) 6 mg/dL (7-20) Creatinine 0.4 mg/dL (0.6-1.0) 0.5 mg/dL (0.6-1.0) Estimated GFR (Cockcroft-Gault) 203.5 157.3 BUN/Creatinine Ratio 18 (6-20) 12 (6-20) Glucose Level 90 mg/dL (70-99) 88 mg/dL (70-99) Calcium Level 8.6 mg/dL (8.5-10.1) 8.2 mg/dL (8.5-10.1) Total Bilirubin 0.2 mg/dL (0.2-1.0) 0.2 mg/dL (0.2-1.0) Aspartate Amino Transf (AST/SGOT) 14 U/L (15-37) 11 U/L (15-37) Alanine Aminotransferase (ALT/SGPT) 14 U/L (14-59) 14 U/L (14-59) Alkaline Phosphatase 87 U/L (46-116) 73 U/L (46-116) Total Protein 5.7 g/dL (6.4-8.2) 5.2 g/dL (6.4-8.2) Albumin 2.7 g/dL (3.4-5.0) 2.4 g/dL (3.4-5.0) Albumin/Globulin Ratio 0.9 (1.0-1.7) 0.9 (1.0-1.7) Medications Current Medications Ringer's Solution 1,000 ml @ 125 mls/hr Q8H PRN IV PER PROTOCOL Last adminis tered on 07/18/20at 08:37; Start 07/17/20 at 10:45 Ondansetron HCl (Zofran) 8 mg PRN Q6HRS PRN IVP NAUSEA Last administered on 07/17at 21:02; Start 07/17/20 at 10:45 Sodium Chloride (Normal Saline Flush) 10 ml QSHIFT PRN IV AFTER MEDS AND BLOOD DRAWS; Start 07/17/20 at 12:00 Dextrose/Lactated Ringer's 1,000 ml @ 150 mls/hr Q6H40M IV Last administered on 07/18/20at 02:52; Start 07/17/20 at 12:00 Metoclopramide HCl (Reglan Vial) 10 mg PRN Q8HRS PRN IVP NAUSEA/VOMITING Last administered on 07/18/20at 08:36; Start 07/17/20 at 12:00 Morphine Sulfate (Morphine Sulfate) 4 mg 1X ONCE IM ; Start 07/17/20 at 12:00; Stop 07/17/20 at 12:01; Status Cancel Ceftriaxone Sodium (Rocephin) 1 gm Q24H IVP Last administered on 07/17/20at 13:01; Start 07/17/20 at 12:00 Morphine Sulfate (Morphine Sulfate) 4 mg 1X ONCE IV Last administered on 07/17/20at 12:26; Start 07/17/20 at 12:30; Stop 07/17/20 at 12:31; Status DC Benzocaine (Americaine) 1 spray PRN Q4HRS PRN TP PAIN; Start 07/17/20 at 14:00 Acetaminophen (Tylenol) 500 mg PRN Q6HRS PRN PO MILD PAIN / TEMP > 100.3'F Last administered on 07/18/20at 08:36; Start 07/17/20 at 16:15 Diphenhydramine HCl (Benadryl) 50 mg PRN Q6HRS PRN IVP ITCHING Last administered on 07/17/20at 21:01; Start 07/17/20 at 17:30 Promethazine HCl (Phenergan Supp) [address] NAUSEA/VOMITING; Start 07/17/20 at 17:30 Sertraline HCl (Zoloft) 50 mg QHS PO Last administered on 07/17/20at 21:00; Start 07/17/20 at 21:00 Aspirin (Ecotrin) 81 mg DAILYWBKFT PO Last administered on 07/18/20at 08:36; Start 07/18/20 at 08:00 Multivit/ Folic Acid/Iron (Multivitamin ) 1 tab DAILY PO Last administered on 07/18/20at 08:36; Start 07/18/20 at 09:00 Active Scripts Active Colace (Docusate Sodium) 100 Mg Capsule 100 Mg PO PRN BID PRN Celexa (Citalopram Hydrobromide) 20 Mg Tablet 20 Mg PO HS Percocet 5-325 Mg Tablet (Oxycodone/Acetaminophen) 1 Each Tablet 2 Tab PO PRN Q4HRS PRN Ibuprofen 400 Mg Tablet 800 Mg PO PRN Q6HRS PRN Reported Zoloft (Sertraline Hcl) 50 Mg Tablet 1 Tab PO DAILY Pnv 29-1 Tablet ( Vit #76/Iron,Carb/FA) 1 Each Tablet 1 Each PO DAILY Exam Abd: soft, non tender, fundus firm; CVA tenderness Left side less than previous day. Assessment 31 wks IUP Pyelonephritis Hyperemesis Plan of Care: Continue current Tx, Mgmt JOVANY ADAMS Jr, MD Jul 18, 2020 10:32
[2020-07-18 13:00] VITALS: BP 113/72
[2020-07-18] MEDS: cefTRIAXone IV Push 1 GM VIAL. IVP SCH (13:43)
[2020-07-18] MEDS: ONDANSETRON PF 4 MG/2 ML VIAL. IVP PRN (14:48)
[2020-07-18 18:24] VITALS: BP 110/63
--- NOTE | 2020-07-18 18:45 | NUR ---
Pts S/O received a call that one of his family members was in a car accident and at on life support. Pt reported that they needed to go to be with the half brother. Call placed to Dr. Ivory and order was given to have pt sign out AMA. Pt signed AMA paper, Dr. Ivory verbalized that I could call in some Zofran to pt's pharmacy even though he doesn't usually allow that. Zofran 8 mg every [address] [facility] in [place]. Sl discontinued and pt left with her S/O and all her belongings.
== END 2020-07-18 18:45 | disposition left against medical advice (07) | DRG 832 ==
LOC: 3 SO LND 10:35 → OBSVTOIN 10:35 → 3 NORTH 16:44
PROVIDERS: ADMIT Obstetrics & Gynecology; ATTEND Obstetrics & Gynecology
DX: O21.0 Mild hyperemesis gravidarum (principal); O23.03 Infections of kidney in pregnancy, third trimester; O21.2 Late vomiting of pregnancy; Z3A.30 30 weeks gestation of pregnancy; Z53.29 Procedure and treatment not carried out because of patient's decision for other reasons
CPT/HCPCS: 36415; 59025; 80053; 81001; 85025; 96361; 96375; 96376; 99285; G0378; G0379; J0696; J1200; J2270; J2405; J2765; J7120; J7121

== ENCOUNTER 2020-08-02 16:47 | Observation (INO) | payer MEDICAID ==
[~2020-08-02 16:47] MED LIST changes: +SERT50TA PO
[2020-08-02] MEDS ORDERED: IV RINGERS,LACTATED 1000ML 1,000 ML IV SCH (17:20)
[2020-08-02 17:32] LABS: AMNIO PT NEGATIVE
[2020-08-02 17:36] LABS: BILIRUBIN,URINE NEGATIVE (NEG); CLARITY,URINE CLEAR; COLOR,URINE YELLOW; NITRITE,URINE NEGATIVE (NEG); PH,URINE 6.5 (<5.0-8.0); PROTEIN,URINE NEGATIVE (NEG-TRACE)
[2020-08-02 17:40] LABS: RBC,URINE 0 /HPF (0-2); SQUAMOUS EPITHELIAL CELL,UR MOD /LPF; WBC,URINE OCC /HPF (0-4)
[2020-08-02 17:41] LABS: BACTERIA,URINE 0 /HPF (0-FEW)
== END 2020-08-02 18:00 | disposition home or self-care (01) ==
LOC: 3 SO LND 16:47
PROVIDERS: ADMIT Obstetrics & Gynecology; ATTEND Obstetrics & Gynecology
DX: O42.913 Preterm premature rupture of membranes, unspecified as to length of time between rupture and onset of labor, third trimester (principal); Z3A.33 33 weeks gestation of pregnancy
CPT/HCPCS: 36415; 81001; 84112; G0378; G0379

== ENCOUNTER 2020-09-08 13:33 | Observation (INO) | payer MEDICAID ==
[2020-09-08] MEDS ORDERED: IV RINGERS,LACTATED 1000ML 1,000 ML IV SCH (13:44)
[2020-09-08 14:37] LABS: BILIRUBIN,URINE NEGATIVE (NEG); CLARITY,URINE CLEAR; COLOR,URINE YELLOW; NITRITE,URINE NEGATIVE (NEG); PROTEIN,URINE NEGATIVE (NEG-TRACE); UROBILINOGEN,URINE 0.2 mg/dL (0.2 mg/dL)
[2020-09-08 15:03] LABS: BACTERIA,URINE 0 /HPF (0-FEW); RBC,URINE 0 /HPF (0-2); WBC,URINE RARE /HPF (0-4)
== END 2020-09-08 18:00 | disposition home or self-care (01) ==
LOC: 3 SO LND 13:33
PROVIDERS: ADMIT Obstetrics & Gynecology; ATTEND Obstetrics & Gynecology
DX: O62.9 Abnormality of forces of labor, unspecified (principal); Z20.828 Contact with and (suspected) exposure to other viral communicable diseases; O46.93 Antepartum hemorrhage, unspecified, third trimester; O26.893 Other specified pregnancy related conditions, third trimester; N89.8 Other specified noninflammatory disorders of vagina; Z3A.38 38 weeks gestation of pregnancy; Z79.899 Other long term (current) drug therapy
CPT/HCPCS: 81001; 87086; G0378; G0379

== ENCOUNTER 2020-09-09 12:18 | Inpatient (IN) | payer MEDICAID ==
[~2020-09-09] VITALS: Ht 160 cm; Wt 96.6 kg
[2020-09-09] MEDS ORDERED: IV RINGERS,LACTATED 1000ML 1,000 ML IV SCH (12:55)
[2020-09-09 13:20] LABS: AMNIO PT POSITIVE
[2020-09-09] MEDS ORDERED: IBUPROFEN 400 MG TABLET. PO PRN (13:45)
[2020-09-09] MEDS ORDERED: 0.9 % SODIUM CHLORIDE 10 ML DISP.SYRIN. IV PRN (13:45)
[2020-09-09] MEDS ORDERED: fentaNYL PF VIAL 100 MCG/2 ML VIAL IVP PRN ×2 (13:45)
[2020-09-09] MEDS ORDERED: TERBUTALINE 1 MG/ML VIAL. SQ PRN (13:45)
[2020-09-09] MEDS ORDERED: LIDOCAINE 1% PF 30 ML VIAL. INJ PRN (13:45)
[2020-09-09] MEDS ORDERED: OXYTOCIN 30 UNIT/500 ML PREMIX 500 ML IV PRN ×2 (13:45)
[2020-09-09] MEDS: IV RINGERS,LACTATED 1000ML 1,000 ML IV SCH ×3 (14:38→19:41)
[2020-09-09 14:47] VITALS: BP 126/67
[2020-09-09 15:02] LABS: BASO % 0 % (0-3); EOS # 0.1 x10^3/uL (0.0-0.7); EOS % 1 % (0-3); HEMATOCRIT 31.8 % (36.0-47.0); HEMOGLOBIN 10.1 g/dL (12.0-15.5); LYMPH # 1.7 x10^3/uL (1.0-4.8); LYMPH % 14 % (24-48); MEAN CORPUSCULAR HEMOGLOBIN 22 pg (25-35); MEAN CORPUSCULAR HGB CONC 32 g/dL (31-37); MEAN CORPUSCULAR VOLUME 69 fL (79-100); MONO # 0.8 x10^3/uL (0.0-1.1); MONO % 7 % (0-9); NEUT # 9.6 x10^3/uL (1.8-7.7); NEUT % 79 % (31-73); PLATELET COUNT 234 x10^3/uL (140-400); RED BLOOD COUNT 4.61 x10^6/uL (3.50-5.40); RED CELL DISTRIBUTION WIDTH 15.1 % (11.5-14.5); WHITE BLOOD COUNT 12.1 x10^3/uL (4.0-11.0)
[2020-09-09 16:09] LABS: ANISOCYTOSIS SLIGHT; HYPOCHROMIA MOD; MICROCYTOSIS MARKED; PLT ESTIMATE ADEQUATE (ADEQUATE); POLYCHROMASIA SLIGHT
[2020-09-09 16:10] LABS: TOXIC GRANULATION SLIGHT
--- NOTE | 2020-09-09 16:39 | PDOC1 ---
OB - History Hx of Present Care: Good Care Ultrasounds: Normal mid trimester US Obstetrical Complications: None Medical Complications: Psychiatric (depression) Past Family/Social History * Past Medical, Surgical, Family and Obstetric Histories reviewed from chart. Rubella: Immune RPR/VDRL: Negative GBS Status: Negative HBsAG: Negative OB - Chief Complaint & HPI Date of Admission: Date of Admission: Sep 09, 2020 at 12:18 Chief Complaint/History : 3 Para: 1 EGA: 38 Reason for admission: active labor, rupture of membranes Admission Nurse Assessment Rev: Yes OB - Admission Exam Physical Exam Vitals: VS - Last 72 Hours, by Label Date Time Temp Pulse Resp B/P (MAP) Pulse Ox O2 Delivery O2 Flow Rate FiO2 09/09/20 14:47 98.4 76 20 126/67 (86) 98.4 HEENT: Normal Heart: Regular Rate Lungs: Clear Abdomen: Gravid, Non tender, Soft Extremities: Edema Reflexes: Normal Cervical Dilatation: 2cm Effacement: 75% Station: -3 Membranes: Ruptured Amniotic Fluid: Clear Heart Rate: Normal Accelerations: Accelerations Present Decelerations: No decelerations Contractions on Admission: 6-10 Minutes Apart Intensity: Mild Text A: 38 wks IUP SROM P: Admit labor management. JOVANY ADAMS Jr, MD Sep 09, 2020 16:39
[2020-09-09] MEDS ORDERED: ONDANSETRON PF 4 MG/2 ML VIAL. IVP PRN (17:15)
[2020-09-09] MEDS ORDERED: L&D EPIDURAL SYRINGE 50 ML ONE ×2 (17:22→20:43)
[2020-09-09] MEDS ORDERED: ROPIVacaine 0.2% PF 10 ML VIAL. ONE ×2 (17:22→18:00)
[2020-09-09] MEDS ORDERED: L&D EPIDURAL 50 ML SYRINGE. ONE ×2 (18:00→21:00)
[2020-09-09] MEDS ORDERED: IV RINGERS,LACTATED 1000ML 1,000 ML IV ONE (23:15)
[2020-09-09] MEDS ORDERED: ONDANSETRON PF 4 MG/2 ML VIAL. IV PRN (23:15)
[2020-09-09] MEDS ORDERED: NALOXONE 0.4 MG/ML VIAL. IV PRN (23:15)
[2020-09-09] MEDS ORDERED: ePHEDrine PF IN SALINE 50 MG/10 ML SYRINGE. IV PRN (23:15)
[2020-09-09] MEDS: L&D EPIDURAL SYRINGE 50 ML EPID PRN (23:56)
[2020-09-10] MEDS: L&D EPIDURAL SYRINGE 50 ML EPID PRN ×2 (03:02→05:52)
[2020-09-10] MEDS ORDERED: ROPIVacaine 0.2% PF 10 ML VIAL. ONE (03:39)
[2020-09-10] MEDS ORDERED: BUPIVACAINE MPF 0.25% 30 ML VIAL. ONE (07:28)
--- NOTE | 2020-09-10 08:29 | PDOC ---
VAGINAL DELIVERY DATE DATE: 09/10/20 TIME: 08:27 : 3 Para: 2 EGA: 38 VAGINAL DELIVERY: VTX VACCUM ASSISTED: No PLACENTA: Spontaneous 8/9 SEX: Female WEIGHT Weight [ pending ] Nuchal Cord: No Amniotic Fluid: Clear PAIN: Epidural EPISIOTOMY: No EXTENSION: Yes (2nd degree midline laceration) REPAIRED WITH 2-0 vicryl EBL 300 ml COMPLICATIONS none CONDITION pt. stable Signs of Intrauterine Infectio: None Shoulder Dystocia: No JOVANY ADAMS Jr, MD Sep 10, 2020 08:28
[2020-09-10] MEDS ORDERED: MAGNESIUM HYDROXIDE 2,400 MG/30 ML ORAL.SUSP. PO PRN (08:30)
[2020-09-10] MEDS ORDERED: MMR per PROTOCOL. MC PRN (08:30)
[2020-09-10] MEDS ORDERED: ZOLPIDEM 5 MG TABLET. PO PRN (08:30)
[2020-09-10] MEDS ORDERED: BENZOCAINE 20% TOPICAL AEROSOL SPRAY 57GM CAN. TP PRN (08:30)
[2020-09-10] MEDS ORDERED: ACETAMINOPHEN 325 MG TABLET. PO PRN (08:30)
[2020-09-10] MEDS ORDERED: SIMETHICONE 80 MG TAB.CHEW PO PRN (08:30)
[2020-09-10] MEDS ORDERED: TDaP (Adacel) per PROTOCOL. MC PRN (08:30)
[2020-09-10] MEDS ORDERED: PHENYLEPH/MINERAL OIL/PETROLAT RECTAL OINTMENT TUBE. RC PRN (08:30)
[2020-09-10] MEDS ORDERED: OXYTOCIN 30 UNIT/500 ML PREMIX 500 ML IV PRN (08:30)
[2020-09-10] MEDS ORDERED: 0.9 % SODIUM CHLORIDE 10 ML DISP.SYRIN. IV PRN (08:30)
[2020-09-10] MEDS ORDERED: diphenhydrAMINE HCL 25 MG CAPSULE PO PRN (08:30)
[2020-09-10] MEDS ORDERED: MAG HYDROX/ALUMINUM HYD/SIMETH 30 ML ORAL.SUSP PO PRN (08:30)
[2020-09-10] MEDS ORDERED: HYDROCORTISONE 1% TOPICAL OINTMENT 30GM TUBE. TP PRN (08:30)
[2020-09-10] MEDS: SERTRALINE 50 MG TABLET. PO SCH (08:55)
[2020-09-10] MEDS: IBUPROFEN 400 MG TABLET. PO PRN ×2 (10:44→20:36)
[2020-09-10 12:05] VITALS: BP 135/71
--- NOTE | 2020-09-10 12:30 | NUR ---
Pt. stable, remains in recovery area until Post room is available.
[2020-09-10 16:30] VITALS: BP 137/67
--- NOTE | 2020-09-10 16:40 | NUR ---
Pt. ambulatory to room 339 in stable condition accompanied by nurse and .
[2020-09-10] MEDS: MULTIVITAMIN with MINERAL TABLET. PO SCH (17:09)
[2020-09-10] MEDS: oxyCODONE/APAP 5/325 1 TAB TABLET PO PRN (17:09)
[2020-09-10] MEDS: DOCUSATE SODIUM 100 MG CAPSULE. PO PRN (17:09)
[2020-09-10 21:08] VITALS: BP 124/74
[2020-09-11] MEDS: oxyCODONE/APAP 5/325 1 TAB TABLET PO PRN (00:42)
[2020-09-11 01:11] VITALS: BP 126/77
[2020-09-11 06:09] VITALS: BP 124/81
[2020-09-11 07:26] LABS: BASO % 0 % (0-3); EOS # 0.1 x10^3/uL (0.0-0.7); EOS % 1 % (0-3); HEMATOCRIT 28.9 % (36.0-47.0); HEMOGLOBIN 9.2 g/dL (12.0-15.5); LYMPH # 2.6 x10^3/uL (1.0-4.8); LYMPH % 27 % (24-48); MEAN CORPUSCULAR HEMOGLOBIN 22 pg (25-35); MEAN CORPUSCULAR HGB CONC 32 g/dL (31-37); MEAN CORPUSCULAR VOLUME 69 fL (79-100); MONO # 0.8 x10^3/uL (0.0-1.1); MONO % 8 % (0-9); NEUT # 6.2 x10^3/uL (1.8-7.7); NEUT % 64 % (31-73); PLATELET COUNT 187 x10^3/uL (140-400); RED BLOOD COUNT 4.17 x10^6/uL (3.50-5.40); RED CELL DISTRIBUTION WIDTH 15.3 % (11.5-14.5); WHITE BLOOD COUNT 9.7 x10^3/uL (4.0-11.0)
[2020-09-11] MEDS ORDERED: FERROUS SULFATE 325 MG TABLET. PO SCH (08:00)
[2020-09-11] MEDS: DOCUSATE SODIUM 100 MG CAPSULE. PO PRN (08:50)
[2020-09-11] MEDS: MULTIVITAMIN with MINERAL TABLET. PO SCH (08:50)
[2020-09-11] MEDS: SERTRALINE 50 MG TABLET. PO SCH (08:51)
[2020-09-11] MEDS: IBUPROFEN 400 MG TABLET. PO PRN (08:51)
[2020-09-11] MEDS ORDERED: FLU VACC QS 2020-21(6MOS+)/PF 0.5 ML SYRINGE. VAX IM ONE (09:00)
[2020-09-11] MEDS ORDERED: DIPH,PERTUSS(ACELL),TET VAC/PF 0.5 ML SYRINGE. VAX IM ONE (09:00)
--- NOTE | 2020-09-11 11:33 | PDOC3 ---
OB DISCHARGE SUMMARY DATE OF ADMISSION: 09/09/20 DATE OF DISCHARGE: 09/11/20 REASON FOR ADMISSION: Onset of labor, SROM INTRAPARTUM PROCEDURES: Spontanous Vag Deliv DISCHARGE DIAGNOSIS: Term Delivered DISCHARGE INFORMATION: Activity (ad pacheco), Diet (regular), Instructions (pelvic rest x 6 wks) HOSPITAL COURSE Term gestation delivered vaginally without complications. JOVANY ADAMS Jr, MD Sep 11, 2020 11:33
[2020-09-11] MEDS ORDERED: IBUP-1027 PO (11:34)
--- NOTE | 2020-09-11 11:35 | DISCH ---
DISCHARGE INSTRUCTIONS Condition on Discharge Condition on Discharge: Stable Activity After Discharge Activity Instructions for Disc: Activity as tolerated Lifting Instructions after Dis: Do not lift >10 pounds Exercise Instruction after Dis: Progress as tolerated Driving Instructions after Dis: Do not drive today Weight Bearing Status after Di: No restrictions Diet after Discharge Diet after Discharge: Regular Wound Incision Care Wound/Incision Care: Ice to area for comfort Contacting the DRDonna after DC Call your doctor for: Concerns you may have Follow-Up Follow up with: Dr. Ivory in 6 wks Treatment/Equipment after DC Adaptive Equipment Issued: None JOVANY IVORY Jr, MD Sep 11, 2020 11:35
[2020-09-11 14:00] VITALS: BP 132/81
--- NOTE | 2020-09-11 14:30 | NUR ---
Discharge and follow up instructions reviewed and given to pt. Pt will board until baby girl is discharged. Boarder status explained and copy also given. Pt denies any questions or concerns at this time.
== END 2020-09-11 14:30 | disposition home or self-care (01) | DRG 807 ==
LOC: OBSVTOIN 12:18 → 3 SO LND 12:18 → INTOOBSV 12:18 → 3 NORTH 09-10 16:45
PROVIDERS: ADMIT Obstetrics & Gynecology; ATTEND Obstetrics & Gynecology
PROC: 10E0XZZ Delivery of Products of Conception, External Approach (ICD-10-PCS; principal; 2020-09-10)
PROC: 0KQM0ZZ Repair Perineum Muscle, Open Approach (ICD-10-PCS; 2020-09-10)
PROC: 3E0R3BZ Introduction of Anesthetic Agent into Spinal Canal, Percutaneous Approach (ICD-10-PCS; 2020-09-10)
PROC: 3E0R33Z Introduction of Anti-inflammatory into Spinal Canal, Percutaneous Approach (ICD-10-PCS; 2020-09-10)
DX: O99.344 Other mental disorders complicating childbirth (principal); Z37.0 Single live birth; O70.1 Second degree perineal laceration during delivery; Z20.828 Contact with and (suspected) exposure to other viral communicable diseases; F32.9 Major depressive disorder, single episode, unspecified; Z3A.38 38 weeks gestation of pregnancy
CPT/HCPCS: 36415; 84112; 85025; 86592; 86850; 86900; 86901; 87426; 90471; 90686; 90715; 99285; J2405; J2590; J2795; J3010; J3490; J7120; U0003; G0378